=== PATIENT | female | born 1965 | race Caucasian/White ===

== ENCOUNTER 2022-08-02 09:14 | Outpatient (REF) | payer OTHER, SELFPAY ==
--- NOTE | ~2022-08-02 | XR_ITS ---
EXAMINATION: XR TOES, LEFT CLINICAL INFORMATION: Left second toe injury COMPARISON: None available. TECHNIQUE: 3 views of the left toes were obtained. FINDINGS: No definite evidence for acute fracture or dislocation. There is IP joint space narrowing, particularly at the second through fifth digits. No distinct bony erosive process seen. Mild narrowing of the MTP joints of the fourth and fifth digits, likely on a degenerative basis. XR/XR toe LT min 2V IMPRESSION: Degenerative changes. No definite evidence for acute fracture or dislocation. No erosive process seen.
== END 2022-08-02 09:15 | disposition home or self-care (01) ==
LOC: HO.HHCX 09:14
PROVIDERS: Visit Provider Emergency Medicine
DX: S99.922A Unspecified injury of left foot, initial encounter (principal)
CPT/HCPCS: 73660

== ENCOUNTER 2024-05-11 09:30 | Outpatient (REF) | payer SELFPAY ==
--- OUTSIDE RECORDS SUMMARY | 2024-05-11 10:24 | XMS_ITS | Encounter Summary ---
Author Organization [employer] Address [address] [facility] [address] [place] [address] Care Team Providers Care Grain I Farmworker Name Role Phone Luisa Braun MD Primary Care Provider [phone] Reason for Visit * Reason Comments Med Refill Encounter Details Date Type Department Care Team ([facility] Contact Info) Description 08/12/2023 Refill [facility] [address] [place], [place] [phone] Luisa Braun MD [address] [place], [place] [id number] Social History Tobacco Use Types Packs/Day Years Used Date Smoking Tobacco: Never Smokeless Tobacco: Never Comments Unknown Sex and Gender Information Value Date Recorded Sex Assigned at Female 12/07/2021 10:15 AM EDT Legal Sex Female 10:15 AM EDT Gender Identity Female 12/07/2021 10:15 AM EDT Sexual Orientation Straight 12/07/2021 10 :15 AM EDT documented as of this encounter Plan of Treatment Upcoming Encounters Date Type Department Care Team (Late Contact Info) Description 06/11/2024 10:00 AM EDT Office Visit [facility] & PEDS [address] [place] [address] Luisa Braun MD [address] [place] [address] documented as of this encounter Visit Diagnoses Not on filedocumented in this encounter Care Teams Grain I Farmworker Relationship Specialty Start Date End Date Luisa Braun MD [address] [place] [id number] PCP - General Family Medicine 01/20/12 documented as of this encounter
--- OUTSIDE RECORDS SUMMARY | 2024-05-11 10:24 | XMS_ITS | Encounter Summary ---
Author Organization [employer] Address [address] [facility] [address] [place] [address] Care Team Providers Care Manufacturing Inspector Name Role Phone Luisa Braun MD Primary Care Provider [phone] Encounter Details Date Type Department Care Team (Latest Contact Info) Description 05/11/2024 Travel Social History Tobacco Use Types Packs/Day Years Used Date Smoking Tobacco: Never Smokeless Tobacco: Never Housing Stability Answer Date Recorded What is your housing situation today? I have treasure sparks 04/13/[address] you li ve. Do you have problems with any of the following? None of the above 04/13/2024 Food Insecurity Answer Date Recorded Within the past 12 months, y ou worried that your food would run out before you got money to buy more: Never True 04/13/2024 Within the past 12 months,th e food you bought just didn't last and you didn't have enough money to get more: Never True 08/2024 Transportation Answer Date Recorded In the past 12 months, has l ack of transportation kept you from medical appts, meetings, work or from getting things needed for daily living? No 04/13/2024 Utilities Answer Date Recorded In the past 12 months, has t he electric, gas, oil or water [employer] threatened to shut off services in your home? No 04/13/2024 Internet Access Answer Date Recorded Internet Access Q1 No 05/11/2024 Internet Access Q2 I do not want or need it 05/2024 Comments No Sex and Gender Information Value Date Recorded Sex Assigned at Female 12/07/2021 10:15 AM EDT Legal Sex Female 10:15 AM EDT Gender Identity Female 12/07/2021 10:15 AM EDT Sexual Orientation Straight 12/07/2021 10 :15 AM EDT documented as of this encounter Plan of Treatment Upcoming Encounters Date Type Department Care Team (Late st Contact Info) Description 06/11/2024 10:00 AM EDT Office Visit [facility] MED & PEDS [address] [place] [address] Luisa Braun MD [address] [place] [address] documented as of this encounter Visit Diagnoses Not on filedocumented in this encounter Care Teams Manufacturing Inspector Relationship Specialty Start Date End Date Luisa Braun MD [address] [place] [phone] PCP - General Family Medicine 01/20/12 documented as of this encounter
--- OUTSIDE RECORDS SUMMARY | 2024-05-11 10:24 | XMS_ITS | Clinical Summary ---
Author Organization [employer] Address [address] [facility] [address] [place] [address] Care Team Providers Care Manager Games Name Role Phone Luisa Braun MD Primary Care Provider [phone] Allergies Active Allergy Reactions Criticality Noted Date Comments Acetaminophen Unknown Medications glucose blood (FREESTYLE LITE) test strip TEST BLOOD SUGAR TWO OR THREE TIMES DAILY DIRECTED Active insulin pen needle (pen needle, diabetic) 31G X 8 mm misc USE SUBCUTANEOUSLY with inuslin FIVE TIMES DAILY Active Alcohol Swabs (SM Alcohol Prep) 70 % pads USE TWO OR THREE DAILY DIRECTED Active busPIRone (Buspar) 10 MG tablet TAKE ONE TABLET BY MOUTH TWICE DAILY IN THE MORNING AND AT BEDTIME FOR ANXIETY Active FREESTYLE LITE test strip TEST BLOOD SUGAR 2-3 TIMES DAILY DIRECTED Active naproxen (Naprosyn) 500 MG tablet TAKE ONE TABLET BY MOUTH TWICE DAILY NEEDED FOR PAIN Active nystatin (Mycostatin) cream APPLY TO THE AFFECTED AREA(S) TWICE DAILY Active ondansetron (Zofran) 4 MG tablet Take 4 mg by mouth every 6 (six) hours if needed. 022 Active sertraline (Zoloft) 100 MG tablet TAKE 1&1/2 TABLETS BY MOUTH EVERY MORNING DIRECTED Active TRUEplus Lancets 33G misc TEST BLOOD SUGAR TWO OR THREE TIMES DAILY DIRECTED 100 each 11 023 Active FREESTYLE LITE test strip TEST BLOOD SUGAR TWO OR THREE TIMES DAILY DIRECTED 100 strip 11 024 Active atorvastatin (Lipitor) 80 MG tablet TAKE ONE TABLET EVERY NIGHT AT BEDTIME (CHOLESTEROL) 90 tablet 1 024 Active ibuprofen 800 MG tablet TAKE ONE TABLET BY MOUTH TWICE DAILY 60 tablet 024 Active clopidogrel (Plavix) 75 MG tablet TAKE ONE TABLET EVERY MORNING (BLOOD) 30 tablet 1 024 Active gabapentin (Neurontin) 100 MG capsule TAKE ONE CAPSULE BY MOUTH EVERY MORNING (PAIN) 30 capsule 2 Active Aspirin Adult Low Strength 81 MG EC tabletIndicati ons:Hypertensi on, unspecified type TAKE ONE TABLET EVERY NIGHT AT BEDTIME (BLOOD) 90 tablet 024 Active glipiZIDE (Glucotrol) 10 MG tablet Take 1 tablet (10 mg) by mouth before breakfast and before evening meal. 90 tablet 1 Active empagliflozin (Jardiance) 10 MGIndications: Type 2 diabetes mellitus with diabetic neuropathy, with long-term current use of insulin ([facility]) Take 1 tablet (10 mg) by mouth Once per day. 30 tablet 11 025 2025 Active lisinopril-hyd roCHLOROthiazi de 20-25 MG tabletIndicati ons:Hypertensi on, unspecified type Take 1 tablet by mouth Once per day. 90 tablet 3 Active amoxicillin (Amoxil) 875 MG tablet amoxicillin 875 mg tablet TAKE ONE TABLET BY MOUTH TWICE DAILY UNTIL FINISHED 2024 Discontinued glipiZIDE (Glucotrol) 10 MG tablet TAKE ONE TABLET DAILY 90 tablet 1 023 2024 Discontinued(R eorder (will not trigger notification to Pharmacy)) Trulicity 3 MG/0.5ML solution pen-injectorIn dications:Type 2 diabetes mellitus without complication, with long-term current use of insulin ([facility]) INJECT ONE PEN (=3MG) SUBCUTANEOUSLY ONCE A WEEK 2 mL 2 024 2024 Discontinued lisinopril-hyd roCHLOROthiazi de 20-25 MG tabletIndicati ons:Hypertensi on, unspecified type TAKE ONE TABLET EVERY NIGHT AT BEDTIME FOR BLOOD PRESSURE 90 tablet 024 2024 Discontinued lisinopril (Prinivil) 20 MG tablet Take 1 tablet (20 mg) by mouth Once per day. 30 tablet 11 025 2024 Discontinued hydroCHLOROthi azide (HYDRODiuril) 25 MG tablet Take 1 tablet (25 mg) by mouth Once per day. 30 tablet 11 025 2024 Discontinued Active Problems Problem Noted Date Diagnosed Date Type 2 diabetes mellitus wit h diabetic neuropathy, with long-term current use of insulin 05/11/2024 Hypertension 05/11/2024 Encounters Date Type Department Care Team Description 05/11/2024 9:00 AM EDT Office Visit [facility] PEDS [address] [place] [address] Luisa Braun MD Type 2 diabetes mellitus with diabetic neuropathy, with long-term current use of insulin ([facility]) (Primary Dx); Hypertension, unspecified type; Encounter for screening mammogram for breast cancer; Encounter for screening for malignant neoplasm of colon 05/11/2024 Travel 05/02/2024 Patient Outreach [facility] [address] [place] [phone] Luisa Braun MD Pre-visit Planning (SDOH screening completed on 04/13/24) 04/27/2024 Travel 04/13/2024 Patient Outreach [facility] [address] [place] [phone] Luisa Braun MD Pre-visit Planning (SDOH screening negative and tobacco screening negative) 02/20/2024 Telephone [facility] [address] [place] [address] Luisa Braun MD TRAIGE from Last 3 Months Immunizations Name Administration Dates Next Due Influenza injectable quadriv alent IIV4 with preservative 11/02/2016 Influenza, IIV3, injectable 01/10/2009 Moderna Covid-19 Vaccine 6+ Bivalent 01/25/2022 Tdap 08/05/2017,01/10/2009 Social History Tobacco Use Types Packs/Day Years Used Date Smoking Tobacco: Never Smokeless Tobacco: Never Tobacco Cessation:Counseling Given: Not Answered Housing Stability Answer Date Recorded What is [...] t he electric, gas, oil or water [employer] threatened to shut off services in your [...] Orientation Straight 12/07/2021 10 :15 AM EDT Last Filed Vital Signs Vital Sign Reading Time Taken Comments Blood Pressure 190/99 05/11/2024 9:06 AM EDT Pulse 76 05/11/2024 9:06 AM EDT Temperature 36.2 ??C (97.1 ??F) 05/11/2024 9:06 AM ED T Respiratory Rate 18 05/11/2024 9:06 AM EDT Oxygen Saturation 98% 08/02/2022 8:41 AM EDT Inhaled Oxygen Concentration - - Weight 93.4 kg (206 lb) 05/11/2024 9:06 AM EDT Height 160 cm (5' 3 ) 05/11/2024 9:06 AM EDT Body Mass Index 36.49 05/11/2024 9:06 AM EDT Plan of Treatment Upcoming Encounters Date Type Department Care Team (Late st Contact Info) Description 06/11/2024 10:00 AM EDT Office Visit [facility] [address] [place] [address] Luisa Braun MD [address] [place] [address] Health Maintenance Due Date Last Done Comments CT Colonography 1964 Colonoscopy 1964 Colorectal Cancer Screening 1964 Depression Screening 1964 FIT DNA/Cologuard 1964 FIT 1964 FOBT 1964 HIV Screening 1964 Sigmoidoscopy 1964 Eye Exam 1974 Hepatitis C Screening 1982 Hepatitis B Vaccines (1 of 3 - 19+ 3-dose series) 01/01/1984 Pneumococcal Vaccine: 50+ Years (1 of 2 - PCV) 01/01/1984 Pap Smear 1985 Cervical Cancer Screening 1994 HPV/Cotest 1994 Mammogram 2004 Zoster Vaccines (1 of 2) 2014 Diabetes: Urine Protein Screening 12/25/2022 12/25/2021 Lipid Panel 12/25/2022 12/25/2021 COVID-19 Vaccine ( season) 2023 01/25/2022, 03/09/2021, 03/12/2020, Additional history exists Influenza Vaccine (#1) 2023 7, 01/10/2009, 01/10/2009 Diabetes: Hemoglobin A1C 08/10/2024 05/11/2024 Alcohol/Substance Use Screening 05/11/2025 05/11/2024 Diabetes: Foot Exam 05/11/2025 05/11/2024, 05/11/2024, 05/11/2024, Additional history exists SDOH Screening 05/11/2025 05/11/2024 Tobacco Screening 05/11/2025 05/11/2024 DTaP/Tdap/Td Vaccines (3 - Td or Tdap) 08/06/2027 08/05/2017, 01/10/2009 RSV Patients and Patients Aged 60 years or older (1 - 1-dose 75+ series) 01/01/2040 HIB Vaccines Aged Out No longer eligi ble based on patient's age to complete this topic HPV Vaccines Aged Out No longer eligi ble based on patient's age to complete this topic Hepatitis A Vaccines Aged Out No long er eligible based on patient's age to complete this topic IPV Vaccines Aged Out No longer eligi ble based on patient's age to complete this topic Meningococcal Vaccine Aged Out No ayse kevin eligible based on patient's age to complete this topic RSV under 20 months Aged Out No longe r eligible based on patient's age to complete this topic Rotavirus Vaccines Aged Out No longer eligible based on patient's age to complete this topic Procedures Procedure Name Priority Date/Time Associated Diagnosis Comments POCT GLYCATED HEMOGLOBIN, TOTAL Routine 05/11/2024 9:29 AM EDT Type 2 diabetes mellitus with diabetic neuropathy, with long-term current use of insulin ([facility]) POCT GLUCOSE Routine 05/11/2024 9:28 AM EDT Type 2 diabetes mellitus with diabetic neuropathy, with long-term current use of insulin ([facility]) ALBUMIN, RANDOM URINE W/CREATININE Routine 12/25/2021 10:17 AM EST LIPID PANEL, STANDARD Routine 12/25/2021 10:17 AM EST from Last 3 Months or Most Recently Relevant to Health Maintenance Results * (ABNORMAL) POCT HGB A1C (05/11/2024 9:29 AM EDT) Hemoglobin A1C 8.8(A) 4.0 - 6.0 % QC Media Lot # [id number] Lot# Expiration Date 6 Blood 05/11/2024 9:29 AM EDT us Luisa Braun MD POINT OF CARE TEST ENTER/EDIT OR DERABLES Final Result * POCT Glucose (05/11/2024 9:28 AM EDT) Glucose Blood, POC 106 60 - 200 mg/dL QC Media Lot # [id number] Lot# Expiration Date Blood Capillary blood specimen / Unknown 05/11/2024 9:28 AM EDT us Luisa Braun MD POINT OF CARE TEST ENTER/EDIT OR DERABLES Final Result * ALBUMIN, RANDOM URINE W/CREATININE (12/25/2021 10:17 AM EST) Microalbumin Urine 1.9 See Note: mg/dL CONVERTED [facility] Comment: Reference Range: ?? Reference Range Not established Microalb/Creat Ratio 25 <30 mcg/mg creat CONVERTED LEGACY LABS Comment: ?? The ADA defines abnormalities in albumin excretion as follows: ?? Albuminuria Category ?Result (mcg/mg creatinine) ?? Normal to Mildly increased ?? <30 Moderately increased ? 30-299 ?? Severely increased ? > OR = 300 ?? The ADA recommends that at least two of three specimens collected within a 3-6 month period be abnormal before considering a patient to be within a diagnostic category. Creatinine, Urine 77 20 - 275 mg/dL CONVERTED [facility]GACY [facility] 12/25/2021 10:1 7 AM EST Luisa Braun MD LAB URINE ORDERABLES Final Resul t CONVERTED [facility]GACY [facility] * (ABNORMAL) LIPID PANEL, STANDARD (12/25/2021 10:17 AM EST) Chol/HDLC Ratio 3.3 <5.0 (calc) [facility] Cholesterol, Total 163 <200 mg/dL [facility] HDL Cholesterol 49(L) > OR = 50 mg/dL [facility] LDL Cholesterol 99 mg/dL (calc) [facility]VERT[facility] Comment: Reference range: <100 ?? Desirable range <100 mg/dL for primary prevention; ?? <70 mg/dL for patients with CHD or diabetic patients ?? with > or = 2 CHD risk factors. ?? LDL-C is now calculated using the Joseph ?? calculation, which is a validated novel method providing ?? better accuracy than the Friedewald equation in the ?? estimation of LDL-C. ?? Elder ESPARZA et al. SHANTHI. 2013;310(19): 4585-5503 ?? (http://education.Rysto/faq/VQD552) Non-HDL Cholesterol 114 <130 mg/dL (calc) [facility]GAC[facility] Comment: For patients with diabetes plus 1 major ASCVD risk ?? factor, treating to a non-HDL-C goal of <100 mg/dL ?? (LDL-C of <70 mg/dL) is considered a therapeutic ?? option. Triglycerides 67 <150 mg/dL CONVE RTED [facility]GACY LAB[facility] 12/25/2021 10:1 7 AM EST us Luisa Braun MD LAB BLOOD ORDERABLES Final Resul t CONVERTED LEGACY LABS from Last 3 Months or Most Recently Relevant to Health Maintenance Insurance [id number] , [address] [address] [employer] on file Care Teams Manager Games Relationship Specialty Start Date End Date Luisa Braun MD [address] [place] [phone] PCP - General Family Medicine 01/20/12
--- OUTSIDE RECORDS SUMMARY | 2024-05-11 10:24 | XMS_ITS | Clinical Summary ---
Author Organization [address] [place] [address] [place] [phone] Phone Care Team Providers Care Playground Official Name Role Phone Luisa Braun MD Primary Care Provider [phone] Allergies Active Allergy Reactions Criticality Noted Date Comments Acetaminophen 01/10/2009 Other Reaction(s): Rash/Dermatitis Medications aspirin 81 mg EC tablet Take 1 Tab by mouth daily for 270 days. 04/21/2018 Active atorvastatin (LIPITOR) 80 mg tablet Take 80 mg by mouth daily. Active clopidogreL (PLAVIX) 75 mg tablet Take 75 mg by mouth daily. Active dulaglutide (Trulicity) 3 mg/0.5 mL pen injector injection Inject 3 mg into the skin once a week. Active gabapentin (NEURONTIN) 100 mg capsule Take 100 mg by mouth 3 times daily. Active lisinopril-hydro CHLOROthiazide (PRINZIDE,ZESTOR ETIC) 20-25 mg per tablet Take 1 tablet by mouth daily. Active sertraline (ZOLOFT) 25 mg tablet Take 25 mg by mouth daily. Active Active Problems Problem Noted Date Diagnosed Date Bilateral carotid artery stenosis 04/21/2018 Anemia 01/10/2009 DM (diabetes mellitus), type 2 01/10/2009 Overview (11/29/2023): uncontrolled High cholesterol 01/10/2009 HTN (hypertension) 01/10/2009 Metrorrhagia 01/10/2009 Overview (11/29/2023): For the past 15 years Morbidly obese 01/10/2009 Immunizations Name Administration Dates Next Due Influenza trivalent, 0.5mL, preservative free (Fluarix; FluLaval; Fluzone) ages 6mo and older (Afluria) 3 years and older 01/10/2009 Tdap Tetanus diptheria acell ular pertussis (Boostrix; Adacel) 7yo and older 01/10/2009 Surgical History Surgery Date Site/Laterality Comments TUBAL LIGATION PROCEDURE: HISTORICAL TUBAL LIGATION Family History Medical History Relation Name Comments Blindness Mother Cataracts Neg Hx Glaucoma Neg Hx Macular degeneration Neg Hx Strabismus Neg Hx Relation Name Status Comments Father ESRD, DM Mother high cholestero l, HTN, CAD, CVA (fatal) Sister 1 Alive DM, high choles terol Sister 2 Alive DM Sister 3 Alive DM Son 1 Alive Son 2 Alive Social History Tobacco Use Types Packs/Day Years Used Date Smoking Tobacco: Never Smokeless Tobacco: Never Alcohol Use Standard Drinks/Week Comments No 0 (1 standard drink = 0.6 oz pur e alcohol) Comments Unknown Sex and Gender Information Value Date Recorded Sex Assigned at Not on file Legal Sex Female 9:00 PM EST Gender Identity Not on file Sexual Orientation Not on file Obstetrics History Last Filed Vital Signs Vital Sign Reading Time Taken Comments Blood Pressure 150/100 12/22/2022 8:27 AM EST Pulse 64 12/22/2022 8:27 AM EST Temperature - - Respiratory Rate - - Oxygen Saturation - - Inhaled Oxygen Concentration - - Weight 94.8 kg (209 lb) 12/22/2022 8:27 AM EST Height 160 cm (5' 3 ) 12/22/2022 8:27 AM EST Body Mass Index 37.02 12/22/2022 8:27 AM EST Plan of Treatment Health Maintenance Due Date Last Done Comments Breast Cancer Screening 1964 Diabetes: Annual Foot Exam 1974 Diabetes: Annual Retina Eye Exam 1974 Hepatitis B Vaccines (1 of 3 - 19+ 3-dose series) 01/01/1984 Pneumococcal Vaccine: 50+ Ye ars (1 of 2 - PCV) 01/01/1984 Pneumococcal Vaccine: Pediat rics (0 to 5 Years) and At-Risk Patients (6 to 64 Years) (1 of 2 - PCV) 01/01/1984 Diabetes: Annual GFR (Glomer ular Filtration Rate) 05/12/2011 05/11/2010 Cervical Cancer Screening: P ap Smear 05/11/2013 05/11/2010 Zoster Vaccines (1 of 2) 2014 DTaP,Tdap,and Td Vaccines (2 - Td or Tdap) 01/10/2019 01/10/2009 Cholesterol Screening (Lipid Panel) 03/09/2019 05/11/2010 Colorectal Cancer Screening: Colonoscopy 03/09/2019 Depression Screening 03/09/2019 HIV Screening 03/09/2019 Hepatitis C Screening 03/09/2019 Social Influencers of Health Screening 03/09/2019 COVID-19 Vaccine ( - 2023-2 5 season) 2023 Diabetes: Annual Urine Albumin-Creatinine Ratio (uACR) 11/17/2023 05/11/2010 Diabetes: Blood Sugar Contro l Test (HGBA1C) 11/17/2023 05/11/2010 Hypertension/CHF/CAD Annual BMP Blood Test 11/17/2023 05/11/2010 Influenza Vaccine (Season Ended) 2024 01/11/20 09 RSV Immunization Adult Patie nts (1 - 1-dose 75+ series) 01/01/2040 HIB [...] on patient's age to complete this topic MMR Vaccines Aged Out No longer eligi ble based on patient's age to complete this topic Meningococcal ACWY Vaccine Aged Out N o longer eligible based on patient's age to complete this topic Meningococcal B Vacine Aged Out No lo nger eligible based on patient's age to complete this topic RSV Immunization Patients Un penelope 20 months Aged Out No longer eligible b ased on patient's age to complete this topic Varicella Vaccines Aged Out No longer eligible based on patient's age to complete this topic Procedures Procedure Name Priority Date/Time Associated Diagnosis Comments HM URINE ALBUMIN CREATININE RATIO Routine 05/11/2010 HM ANNUAL BMP BLOOD TEST Routine 05/11/2010 HEMOGLOBIN A1C Routine 05/11/2010 LIPID PANEL Routine 05/11/2010 HM PAP SMEAR Routine 05/11/2010 from Last 3 Months or Most Recently Relevant to Health Maintenance Results * Urine Albumin Creatinine Ratio (05/11/2010) Pathologist [facility] Urine Albumin Creatinine Ratio Abstracted Result [employer] Provider HEALTH MAINTENANCE Final Result * Annual BMP Blood Test (05/11/2010) Pathologist [facility] Annual BMP Blood Test Abstracted Result [facility] [facility] [employer] Provider HEALTH MAINTENANCE Final Result * Pap Smear (05/11/2010) Pathologist [facility] Pap smear No interpretation , Abstracted Result [facility] [employer] [facility] Provider HEALTH MAINTENANCE Final Result * (ABNORMAL) Hemoglobin A1c (05/11/2010) [facility] Hemoglobin A1C 12.9(A) 4.0 - 6.0 % Blood Venous blood specimen / Unknown Result [employer] Provider LAB BLOOD ORDERABLES [place] Result * (ABNORMAL) Lipid panel (05/11/2010) [facility] LDL/HDL Ratio 4 0 - 4 Triglycerides 153(A) 0 - 150 mg/dL Cholesterol 263(A) 0 - 200 mg/dL HDL 63 >=40 mg/dL LDL Cholesterol 170(A) 0 - 100 mg/dL Blood Venous blood specimen / Unknown Result [facility] [facility] Provider LAB BLOOD ORDERABLES [place] Result from Last 3 Months or Most Recently Relevant to Health Maintenance Advance Directives Documents on File Type Date Recorded Patient Sheet [employer] Expl anation Health Care Decision (hx) 01/13/2019 AD ABARCA DIRECTIVE Health Care Decision (hx) 01/13/2019 AD ABARCA DIRECTIVE Health Care Decision (hx) 01/13/2019 AD ABARCA DIRECTIVE Health Care Decision (hx) 01/13/2019 AD ABARCA DIRECTIVE Health Care Decision (hx) 01/13/2019 AD ABARCA DIRECTIVE Health Care Decision (hx) 01/13/2019 AD ABARCA DIRECTIVE Health Care Decision (hx) 01/13/2019 AD ABARCA DIRECTIVE Health Care Decision (hx) 01/13/2019 AD ABARCA DIRECTIVE Health Care Decision (hx) 01/13/2019 AD ABARCA DIRECTIVE Health Care Decision (hx) 01/13/2019 AD ABARCA DIRECTIVE Health Care Decision (hx) 01/13/2019 AD ABARCA DIRECTIVE Health Care Decision (hx) 01/13/2019 AD ABARCA DIRECTIVE Health Care Decision (hx) 01/13/2019 AD ABARCA DIRECTIVE Health Care Decision (hx) 01/13/2019 AD ABARCA DIRECTIVE Health Care Decision (hx) 01/13/2019 AD ABARCA DIRECTIVE Health Care Decision (hx) 01/13/2019 AD ABARCA DIRECTIVE Health Care Decision (hx) 01/13/2019 AD ABARCA DIRECTIVE Health Care Decision (hx) 01/13/2019 AD ABARCA DIRECTIVE Health Care Decision (hx) 01/13/2019 AD ABARCA DIRECTIVE Health Care Decision (hx) 02/28/2017 AD ABARCA DIRECTIVE Health Care Decision (hx) 02/28/2017 AD ABARCA DIRECTIVE Health Care Decision (hx) 02/28/2017 AD ABARCA DIRECTIVE Health Care Decision (hx) 02/28/2017 AD ABARCA DIRECTIVE Health Care Decision (hx) 02/28/2017 AD ABARCA DIRECTIVE Health Care Decision (hx) 02/28/2017 AD ABARCA DIRECTIVE Health Care Decision (hx) 02/28/2017 AD ABARCA DIRECTIVE Health Care Decision (hx) 02/28/2017 AD ABARCA DIRECTIVE Health Care Decision (hx) 02/28/2017 AD ABARCA DIRECTIVE Health Care Decision (hx) 02/28/2017 AD ABARCA DIRECTIVE Health Care Decision (hx) 02/28/2017 AD ABARCA DIRECTIVE Health Care Decision (hx) 02/28/2017 AD ABARCA DIRECTIVE Health Care Decision (hx) 02/28/2017 AD ABARCA DIRECTIVE Health Care Decision (hx) 02/28/2017 AD ABARCA DIRECTIVE Health Care Decision (hx) 02/28/2017 AD ABARCA DIRECTIVE Health Care Decision (hx) 02/28/2017 AD ABARCA DIRECTIVE Health Care Decision (hx) 02/28/2017 AD ABARCA DIRECTIVE Health Care Decision (hx) 02/28/2017 AD ABARCA DIRECTIVE Health Care Decision (hx) 02/28/2017 AD ABARCA DIRECTIVE Health Care Decision (hx) 02/28/2017 AD ABARCA DIRECTIVE Health Care Decision (hx) 02/28/2017 AD ABARCA DIRECTIVE Health Care Decision (hx) 02/28/2017 AD ABARCA DIRECTIVE Health Care Decision (hx) 02/28/2017 AD ABARCA DIRECTIVE Health Care Decision (hx) 02/28/2017 AD ABARCA DIRECTIVE Health Care Decision (hx) 02/28/2017 AD ABARCA DIRECTIVE Health Care Decision (hx) 02/28/2017 AD ABARCA DIRECTIVE Health Care Decision (hx) 02/28/2017 AD ABARCA DIRECTIVE Health Care Decision (hx) 02/28/2017 AD ABARCA DIRECTIVE Health Care Decision (hx) 02/28/2017 AD ABARCA DIRECTIVE Health Care Decision (hx) 02/28/2017 AD ABARCA DIRECTIVE Health Care Decision (hx) 02/28/2017 AD ABARCA DIRECTIVE Health Care Decision (hx) 02/28/2017 AD ABARCA DIRECTIVE Health Care Decision (hx) 02/28/2017 AD ABARCA DIRECTIVE Health Care Decision (hx) 02/28/2017 AD ABARCA DIRECTIVE Health Care Decision (hx) 02/28/2017 AD ABARCA DIRECTIVE Health Care Decision (hx) 02/28/2017 AD ABARCA DIRECTIVE Health Care Decision (hx) 02/28/2017 AD ABARCA DIRECTIVE Health Care Decision (hx) 02/28/2017 AD ABARCA DIRECTIVE Health Care Decision (hx) 02/28/2017 AD ABARCA DIRECTIVE Health Care Decision (hx) 02/28/2017 AD ABARCA DIRECTIVE Care Teams Playground Official Relationship Specialty Start Date End Date Luisa Braun MD [address] [place] [phone] PCP - General 07/24/14
--- OUTSIDE RECORDS SUMMARY | 2024-05-11 10:24 | XMS_ITS | Encounter Summary ---
Author Organization [employer] Address [address] [facility] [address] [place] [address] Care Team Providers Care Sandblaster Supervisor Name Role Phone Luisa Braun MD Primary Care Provider [phone] Reason for Visit * Reason Comments Med Refill Encounter Details Date Type Department Care Team ([facility] Contact Info) Description 08/13/2023 Refill [facility] MED & PEDS [address] [place], [place] [phone] Luisa Braun MD [address] [place], [place] [phone] Social History Tobacco Use Types Packs/Day Years [...] Description 06/11/2024 10:00 AM EDT Office Visit [facility] MED & PEDS [address] [place] [address] Luisa Braun MD [address] [place] [address] documented as of this encounter Visit Diagnoses Not on filedocumented in this encounter Care Teams Sandblaster Supervisor Relationship Specialty Start Date End Date Luisa Braun MD [address] [place] [phone] PCP - General Family Medicine 01/20/12 documented as of this encounter
--- OUTSIDE RECORDS SUMMARY | 2024-05-11 10:24 | XMS_ITS | Encounter Summary ---
Author Organization [employer] Address [address] [facility] [address] [place] [address] Care Team Providers Care Solar Photovoltaic Systems Engineer Name Role Phone Luisa Braun MD Primary Care Provider [phone] Reason for Referral * Consultation (Routine) - Authorized Specialty Diagnoses / Procedures Referred By Masha truong Referred To Contact Optometry Diagnoses Type 2 diabetes mellitus with diabetic neuropathy, with long-term current use of insulin ([facility]) Luisa Braun MD [address] [place] [address] Phone: tel: fax: [facility] OPTOMETRY [address] [place] [address] Phone: tel: fax: Referral ID Status Reason Start Date Expiration Date Visits Requested Visits Authorized [id number] Authorized Consult and Treat 05/11/2024 05/11/2025 1 1 * Imaging (Routine) - Closed Specialty Diagnoses / Procedures Referred By Masha truong Referred To Contact Radiology Diagnoses Encounter for screening mammogram for breast cancer Procedures BI Mammogram Screening Tomosynthesis Bilateral Luisa Braun MD [address] [place] [address] Phone: tel: fax: [facility] [address] [place] [address] Phone: tel: fax: Referral ID Status Reason Start Date Expiration Date Visits Re quested Visits Authorized [id number] Closed 05/11/2024 05/11/2025 1 1 * Consultation (Routine) - Pending Review Specialty Diagnoses / Procedures Referred By Masha truong Referred To Contact Gastroenterology Diagnoses Encounter for screening for malignant neoplasm of colon Luisa Braun MD [address] [place] [address] Phone: tel: fax: Referral ID Status Reason Start Date Expiration Date Visits Requested Visits Authorized [id number] Pending Review Specialty Services Required 05/11/2024 05/11/2025 1 1 * Consultation (Urgent) - Authorized Specialty Diagnoses / Procedures Referred By Masha truong Referred To Contact Pharmacy Diagnoses Type 2 diabetes mellitus with diabetic neuropathy, with long-term current use of insulin (CMS/HCC) Hypertension, unspecified type Luisa Braun MD [address] [place] [address] Phone: tel: fax: Referral ID Status Reason Start Date Expiration Date Visits Requested Visits Authorized [id number] Authorized Consult and Treat 05/11/2024 05/11/2025 6 6 * Medications - Pending Review Specialty Diagnoses / Procedures Referred By Masha truong Referred To Contact Diagnoses Type 2 diabetes mellitus with diabetic neuropathy, with long-term current use of insulin ([facility]) Luisa Braun MD [address] [place] [address] Phone: tel: fax: Referral ID Status Reason Start Date Expiration Date V isits Requested Visits Authorized [id number] Pending Review 05/11/2024 05/11/2025 1 1 Reason for Visit * Reason Comments Diabetes Hypertension Encounter Details Date Type Department Care Team ([facility] st Contact Info) Description 05/11/2024 9:00 AM EDT Office Visit [facility] MED & PEDS [address] [place] [address] Luisa Braun MD [address] [place] [address] Type 2 diabetes mellitus with diabetic neuropathy, with long-term current use of insulin (CMS/HCC) (Primary Dx); Hypertension, unspecified type; Encounter for screening mammogram for breast cancer; Encounter for screening for malignant neoplasm of colon Social History Tobacco Use Types Packs/Day Years [...] t he electric, gas, oil or water company threatened to shut off services in your [...] AM EDT documented as of this encounter Last Filed Vital Signs Vital Sign Reading Time Taken Comments Blood Pressure 190/99 05/11/2024 9:06 AM EDT Pulse 76 05/11/2024 9:06 AM EDT Temperature 36.2 ??C (97.1 ??F) 05/11/2024 9:06 AM ED T Respiratory Rate 18 05/11/2024 9:06 AM EDT Oxygen Saturation - - Inhaled Oxygen Concentration - - Weight 93.4 kg (206 lb) 05/11/2024 9:06 AM EDT Height 160 cm (5' 3 ) 05/11/2024 9:06 AM EDT Body Mass Index 36.49 05/11/2024 9:06 AM EDT documented in this encounter Progress Notes * Luisa Braun MD - 05/11/2024 9:00 AM EDT Subjective Patient ID: Nisha Gordon is a 58 y.o. female who presents for Diabetes and Hypertension. Diabetes She presents for her follow-up diabetic visit. She has type 2 diabetes mellitus. Her disease coursehas been worsening. There are no hypoglycemic associated symptoms. Pertinent negatives for hypoglycemia include no headaches or sweats. Pertinent negatives for diabetes include no blurred vision and no chest pain. There are no hypoglycemic complications. Symptoms are stable. Diabetic complications include peripheral neuropathy. Risk factors for coronary artery disease include family history, obesity and sedentary lifestyle. Current diabetic treatment includes oral agent (monotherapy). She is compliant with treatment most of the time. Hypertension This is a chronic problem. The current episode started more than 1 year ago. The problem is uncontrolled. Pertinent negatives include no anxiety, blurred vision, chest pain, headaches, malaise/fatigue, neck pain, orthopnea, palpitations, PND, shortness of breath or sweats. Risk factors for coronaryartery disease include family history, sedentary lifestyle and obesity. Past treatments include NAS inhibitors and diuretics. Pt has been out of meds for 3-4nths She has not been taking insulin due to insurance issues Review of Systems Constitutional: Negative. Negative for malaise/fatigue. Eyes: Negative for blurred vision. Respiratory: Negative. Negative for shortness of breath. Cardiovascular: Negative for chest pain, palpitations, orthopnea and PND. Gastrointestinal: Negative. Genitourinary: Negative. Musculoskeletal: Negative for neck pain. Neurological: Negative for headaches. Objective Physical Exam Constitutional: General: She is not in acute distress. Appearance: Normal appearance. She is normal weight. HENT: Head: Normocephalic. Nose: Nose normal. Mouth/Throat: Mouth: Mucous membranes are moist. Comments: Has braces Eyes: Extraocular Movements: Extraocular movements intact. Pupils: Pupils are equal, round, and reactive to light. Cardiovascular: Rate and Rhythm: Normal rate and regular rhythm. Pulses: Normal pulses. Dorsalis pedis pulses are 2+ on the right side and 2+ on the left side. Posterior tibial pulses are 2+ on the right side and 2+ on the left side. Heart sounds: Normal heart sounds. No murmur heard. Pulmonary: Effort: Pulmonary effort is normal. Breath sounds: Normal breath sounds. Abdominal: General: Abdomen is flat. Bowel sounds are normal. There is no distension. Palpations: Abdomen is soft. There is no mass. Tenderness: There is no abdominal tenderness. There is no guarding. Musculoskeletal: General: Normal range of motion. Right lower leg: No edema. Left lower leg: No edema. Right foot: Normal range of motion. No deformity, bunion, Charcot foot or prominent metatarsal heads. Left foot: Normal range of motion. No deformity, bunion, Charcot foot or prominent metatarsal heads. Feet: Right foot: Protective Sensation: 7 sites tested. 4 sites sensed. Skin integrity: Skin integrity normal. No ulcer, blister, skin breakdown, erythema, warmth, callus or dry skin. Toenail Condition: Right toenails are normal. Left foot: Protective Sensation: 7 sites tested. 4 sites sensed. Skin integrity: Skin integrity normal. No ulcer, blister, skin breakdown, erythema, warmth, callus or dry skin. Toenail Condition: Left toenails are normal. Skin: Capillary Refill: Capillary refill takes less than 2 seconds. Findings: No rash. Neurological: Mental Status: She is alert and oriented to person, place, and time. Psychiatric: Mood and Affect: Mood normal. Behavior: Behavior normal. Assessment/Plan Diagnoses and all orders for this visit: Type 2 diabetes mellitus with diabetic neuropathy, with long-term current use of insulin ([facility]) Comments: D/C insulin due to insurance issues Started on Jardiance Cont Glipizide Advised Low sugar and Low carb diet. Counseled regarding self-monitoring of blood glucose. Counseled re: potential co-morbidities including cardiovascular disease. Orders: - POCT Glucose - POCT HGB A1C - empagliflozin (Jardiance) 10 MG; Take 1 tablet (10 mg) by mouth Once per day. - Basic Metabolic Panel; Future - Lipid Panel, Standard; Future - Hepatic Function Panel; Future - Albumin, Random Urine W/Creatinine; Future - Referral to Pharmacy CDTM - Referral to [facility]; Future Hypertension, unspecified type Comments: Uncontrolled Advised to resume meds and advised compliance Maintain a low-sodium diet (less than 2 grams per day). Maintain a regular cardiovascular exercise program. Advised to maintain a low-fat, low-cholesterol diet. Counseled regarding importance of weight loss. Counseled re: potential co-morbidities including cardiovascular disease. Orders: - lisinopril-hydroCHLOROthiazide 20-25 MG tablet; Take 1 tablet by mouth Once per day. - Referral to Pharmacy CDTM Encounter for screening mammogram for breast cancer - BI Mammogram Screening Tomosynthesis Bilateral; Future Encounter for screening for malignant neoplasm of colon - Referral to Gastroenterology; Future Other orders - glipiZIDE (Glucotrol) 10 MG tablet; Take 1 tablet (10 mg) by mouth before breakfast and before evening meal. documented in this encounter Plan of Treatment Upcoming Encounters Date Type Department Care Team (Late st Contact Info) Description 06/11/2024 10:00 AM EDT Office Visit [facility] MED & PEDS [address] [place] [address] Luisa Braun MD [address] [place] [address] Scheduled Orders Name Type Priority Associated Diagnoses Orde r Schedule Basic Metabolic Panel Lab Routine Type 2 diabetes mellitus with diabetic neuropathy, with long-term current use of insulin ([facility]) Expected: 05/11/2024 (Approximate), Expires: 05/11/2025 Lipid Panel, Standard Lab Routine Type 2 diabetes mellitus with diabetic neuropathy, with long-term current use of insulin (CMS/HCC) Expected: 05/11/2024 (Approximate), Expires: 05/11/2025 Hepatic Function Panel Lab Routine Type 2 diabetes mellitus with diabetic neuropathy, with long-term current use of insulin (CMS/HCC) Expected: 05/11/2024 (Approximate), Expires: 05/11/2025 Albumin, Random Urine W/Creatinine Lab Routine Type 2 diabetes mellitus with diabetic neuropathy, with long-term current use of insulin (CMS/HCC) Expected: 05/11/2024 (Approximate), Expires: 05/11/2025 BI Mammogram Screening Tomosynthesis Bilateral Imaging Routine Encounter for screening mammogram for breast cancer Expected: 05/11/2024, Expires: 07/11/2025 Scheduled Referrals Name Type Priority Associated Diagnoses Order Schedule Referral to Pharmacy CD Outpatient Referral Urgent Type 2 diabetes mellitus with diabetic neuropathy, with long-term current use of insulin ([facility]) Hypertension, unspecified type Ordered: 05/11/2024 Referral to Gastroenterology Outpatient Referral Routine Encounter for screening for malignant neoplasm of colon Expected: 05/11/2024 (Approximate), Expires: 05/11/2025 Referral to [facility] Outpatient Referral Routine Type 2 diabetes mellitus with diabetic neuropathy, with long-term current use of insulin ([facility]) Expected: 05/11/2024 (Approximate), Expires: 05/11/2025 documented as of this encounter Procedures Procedure Name Priority Date/Time Associated Diagnosis Comments POCT GLYCATED HEMOGLOBIN, TOTAL Routine 05/11/2024 9:29 AM EDT Type 2 diabetes mellitus with diabetic neuropathy, with long-term current use of insulin ([facility]) POCT GLUCOSE Routine 05/11/2024 9:28 AM EDT Type 2 diabetes mellitus with diabetic neuropathy, with long-term current use of insulin ([facility]) documented in this encounter Results * (ABNORMAL) POCT HGB A1C (05/11/2024 9:29 AM EDT) Hemoglobin A1C 8.8(A) 4.0 - 6.0 % QC Media Lot # [id number] Lot# Expiration Date 6 Blood 05/11/2024 9:29 AM EDT Luisa Braun MD POINT OF CARE TEST ENTER/EDIT OR DERABLES Final Result * POCT Glucose (05/11/2024 9:28 AM EDT) Glucose Blood, POC 106 [id number] - 200 mg/dL QC Media Lot # [id number] Lot# Expiration Date Blood Capillary blood specimen / Unknown 05/11/2024 9:28 AM EDT Luisa Braun MD POINT OF CARE TEST ENTER/EDIT OR DERABLES Final Result documented in this encounter Visit Diagnoses Diagnosis Type 2 diabetes mellitus with diabetic neuropathy, with long-term current use of insulin ([facility])- Primary Hypertension, unspecified type Encounter for screening mammogram for breast cancer Encounter for screening for malignant neoplasm of colon documented in this encounter Care Teams Solar Photovoltaic Systems Engineer Relationship Specialty Start Date End Date Luisa Braun MD [address] [place] [phone] PCP - General Family Medicine 01/20/12 documented as of this encounter
[2024-05-11 15:00] LABS: Alanine Aminotransferase 15 U/L (0-31); Albumin Level 3.8 g/dL (3.5-5.0); Alkaline Phosphatase 95 U/L (39-117); Anion Gap 12 (12-20); Aspartate Amino Transferase 32 U/L (5-31); Bilirubin Direct 0.3 mg/dL (0.0-0.5); Bilirubin Total 0.9 mg/dL (0.0-1.0); Blood Urea Nitrogen 20 mg/dL (9-16); Calcium 9.4 mg/dL (8.4-10.2); Carbon Dioxide 27 mmol/L (22-29); Chloride 107 mmol/L (96-108); Cholesterol 226 mg/dL (<200); Estimated Glomerular Filt Rate > 60; Glucose Random 204 mg/dL (60-115); HDL Cholesterol 49 mg/dL (>40); LDL Cholesterol Calculated 151 mg/dL (<100); Potassium 4.6 mmol/L (3.3-5.1); Sodium 141 mmol/L (135-145); Total Protein 7.3 g/dL (6.5-8.0); Triglycerides 133 mg/dL (<150)
== END 2024-05-11 09:31 | disposition home or self-care (01) ==
LOC: HO.CHCLDS 09:30
PROVIDERS: Visit Provider Student in an Organized Health Care Education/Training Program
DX: E11.40 Type 2 diabetes mellitus with diabetic neuropathy, unspecified (principal); Z79.4 Long term (current) use of insulin
CPT/HCPCS: 36415; 80048; 80061; 80076